=== PATIENT | female | born 1980 | race Caucasian/White ===

== ENCOUNTER 2022-04-25 10:18 | Observation (INO) ==
[2022-04-25] MEDS ORDERED: Ondansetron 4 MG/2 ML VIAL IVP ONE (10:56)
[2022-04-25] MEDS ORDERED: 0.9 % Sodium Chloride 1,000 ML IVC ONE (10:56)
[2022-04-25] MEDS ORDERED: Iopamidol - 370 500 ML MLS IVP ONE (10:57)
[2022-04-25 11:41] LABS: Hematocrit 32.8 % (35.3-44.9); Hemoglobin 10.3 g/dL (11.5-15.4); Mean Corpuscular HGB Conc 31.4 g/dL (31.6-35.5)
[2022-04-25 11:43] LABS: Immature Platelets 22.5 % (1.1-6.1); Mean Corpuscular Hemoglobin 23.4 pg (28.0-33.3); Mean Corpuscular Volume 74.5 fL (83.0-100.0); Red Cell Distribution Width 18.1 % (11.5-14.5); White Blood Count 6.7 K/mcL (4.3-11.1)
[2022-04-25 12:03] LABS: Bacteria,Urine Few per hpf (None-Few); Bilirubin,Urine Moderate (Negative); Blood,Urine Moderate (Negative); Clarity,Urine Clear (Clear); Color,Urine Dark-Yellow (Yellow); Glucose,Urine (UA) Normal (Normal); Ketones,Urine Negative (Negative); Leukocyte Esterase,Urine Moderate (Negative); Nitrite,Urine Positive (Negative); Protein,Urine Trace mg/dL (Neg-Trace); Specific Gravity,Urine 1.022 (1.010-1.025); Squamous Epithelial Cell,Urine Few per hpf (None-Few); Urobilinogen,Urine Normal (Normal); WBC,Urine 15-30 per hpf (0-3)
[2022-04-25 12:12] LABS: Alanine Aminotransferase 1282 Units/L (7-52); Albumin 3.9 g/dL (3.5-5.7); Albumin/Globulin Ratio 1.8 (1.1-2.2); Alkaline Phosphatase 238 Units/L (34-104); Aspartate Amino Transferase 665 Units/L (13-39); BUN/Creatinine Ratio 18 (6-26); Bilirubin,Direct 6.9 mg/dL (0.0-0.2); Bilirubin,Indirect 3.6 mg/dL (0.0-1.0); Bilirubin,Total 10.5 mg/dL (0.3-1.0); Blood Urea Nitrogen 11 mg/dL (6-20); Calcium 8.4 mg/dL (8.6-10.3); Carbon Dioxide 31 mEq/L (23-29); Chloride 98 mEq/L (98-107); Globulin 2.2 g/dL (2.4-3.5); Glucose 130 mg/dL (70-105); Lipase 18 Units/L (11-82); Osmolality,Calculated 279 (280-300); Potassium 3.2 mEq/L (3.5-5.1); Sodium 134 mEq/L (136-145); Total Protein 6.1 g/dL (6.4-8.9)
[2022-04-25 12:33] LABS: Platelet Count 58 K/mcL (140-400)
[2022-04-25 12:42] LABS: Anisocytosis 1+ (Not Present); Hypochromasia Present (Not Present); Lymphocytes # 5.5 K/mcL (0.6-4.6); Microcytosis Present (Not Present); Monocytes # 0.1 K/mcL (0.0-1.3); Neutrophils # 1.1 K/mcL (1.6-8.9); Platelet Estimate Decreased (Normal)
[2022-04-25 12:43] LABS: Large Platelets Present (Not Present); Reactive Lymphocytes Present (Not Present)
[2022-04-25] MEDS ORDERED: cefTRIAXone 1,000 MG in 0.9 % Sodium Chloride Mini Bag 100 ML IVPB ONE (13:03)
[2022-04-25] MEDS ORDERED: Potassium Chloride Elixir 20 MEQ/15 ML UDC PO ONE (15:19)
[2022-04-25 15:43] LABS: INR 1.3; Prothrombin Time 14.5 Seconds (9.4-12.1)
[2022-04-25] MEDS ORDERED: Naloxone 0.4 MG/ML INJ IVP PRN (16:10)
[2022-04-25] MEDS ORDERED: Ondansetron 4 MG/2 ML VIAL IVP PRN (16:10)
[2022-04-25 16:13] LABS: Acetaminophen < 10 mcg/mL (10-20); Ethanol < 10 mg/dL (Less than 10)
[2022-04-25] MEDS ORDERED: 0.9 % Sodium Chloride 1,000 ML IVC SCH (17:45)
[2022-04-25 19:48] LABS: Adenovirus Not Detected (Not Detect); Bordetella Pertussis Not Detected (Not Detect); Chlamydophila pneumoniae Not Detected (Not Detect); Coronavirus 229E Not Detected (Not Detect); Coronavirus HKU1 Not Detected (Not Detect); Coronavirus NL63 Not Detected (Not Detect); Coronavirus OC43 Not Detected (Not Detect); Human Metapneumovirus Not Detected (Not Detect); Human Rhinovirus/Enterovirus Not Detected (Not Detect); Influenza A Subtype 2009 H1 Not Detected (Not Detect); Influenza B Not Detected (Not Detect); Mycoplasma pneumoniae Not Detected (Not Detect); Parainfluenza Virus 1 Not Detected (Not Detect); Parainfluenza Virus 2 Not Detected (Not Detect); Parainfluenza Virus 3 Not Detected (Not Detect); Parainfluenza Virus 4 Not Detected (Not Detect); Respiratory Syncytial Virus Not Detected (Not Detect); SARS-CoV-2 Not Detected (Not Detect)
[2022-04-25 19:52] LABS: Chol/HDL Ratio 23.8 (0-4.9); Phosphorous 2.3 mg/dL (2.7-4.5)
[2022-04-25 20:40] LABS: HIV-1&2 Antibody & p24 Ag Nonreactive (Nonreactive)
[2022-04-25 22:48] LABS: Hepatitis B Surface Antigen Nonreactive (Nonreactive)
[2022-04-25 23:17] LABS: Hepatitis B Core IgM Nonreactive (Nonreactive)
[2022-04-25 23:18] LABS: Hepatitis A Antibody IgM Nonreactive (Nonreactive)
[2022-04-25 23:39] LABS: % Iron Saturation 6 % (15-50); Ferritin 60 ng/mL (10-120); Iron 23 mcg/dL (50-170); Transferrin 296 mg/dL (203-362)
[2022-04-26] MEDS: cefTRIAXone 1,000 MG in Water for inj. (sterile) 10 ML IVP SCH (08:45)
[2022-04-26 08:48] LABS: Hepatitis C Virus Antibody Reactive (Nonreactive)
[2022-04-26 10:33] LABS: Immature Granulocytes % 0.4 % (0-4); Red Cell Distribution Width 18.4 % (11.5-14.5); Segmented Neutrophils % 30.7 %
[2022-04-26 10:34] LABS: Basophils % 0.4 %; Eosinophils # 0.1 K/mcL (0.0-0.6); Eosinophils % 2.6 %; Hematocrit 27.6 % (35.3-44.9); Hemoglobin 8.5 g/dL (11.5-15.4); Immature Platelets 16.6 % (1.1-6.1); Lymphocytes # 3.1 K/mcL (0.6-4.6); Lymphocytes % 60.6 %; Mean Corpuscular HGB Conc 30.8 g/dL (31.6-35.5); Mean Corpuscular Hemoglobin 23.5 pg (28.0-33.3); Mean Corpuscular Volume 76.2 fL (83.0-100.0); Monocytes # 0.3 K/mcL (0.0-1.3); Monocytes % 5.3 %; Neutrophils # 1.6 K/mcL (1.6-8.9); Red Blood Count 3.62 M/mcL (3.82-4.97); White Blood Count 5.1 K/mcL (4.3-11.1)
[2022-04-26 10:36] LABS: Platelet Count 66 K/mcL (140-400)
[2022-04-26 10:40] LABS: INR 1.1; Prothrombin Time 12.5 Seconds (9.4-12.1)
[2022-04-26 10:43] LABS: Activated Partial Thrombo Time 22.1 Seconds (26.0-36.0)
[2022-04-26 11:24] LABS: Alanine Aminotransferase 703 Units/L (7-52); Albumin 3.3 g/dL (3.5-5.7); Albumin/Globulin Ratio 1.7 (1.1-2.2); Alkaline Phosphatase 196 Units/L (34-104); Aspartate Amino Transferase 191 Units/L (13-39); BUN/Creatinine Ratio 15 (6-26); Bilirubin,Indirect 2.5 mg/dL (0.0-1.0); Bilirubin,Total 7.5 mg/dL (0.3-1.0); Blood Urea Nitrogen 8 mg/dL (6-20); Calcium 7.9 mg/dL (8.6-10.3); Carbon Dioxide 25 mEq/L (23-29); Chloride 108 mEq/L (98-107); Glucose 106 mg/dL (70-105); Osmolality,Calculated 285 (280-300); Sodium 138 mEq/L (136-145); Total Protein 5.3 g/dL (6.4-8.9)
[2022-04-26 12:10] LABS: Lactate Dehydrogenase 179 Units/L (140-271)
[2022-04-27 03:18] LABS: Basophils % 0.2 %; Eosinophils # 0.2 K/mcL (0.0-0.6); Eosinophils % 3.3 %; Hematocrit 27.8 % (35.3-44.9); Hemoglobin 8.4 g/dL (11.5-15.4); Immature Granulocytes % 0.7 % (0-4); Immature Platelets 19.3 % (1.1-6.1); Lymphocytes # 3.2 K/mcL (0.6-4.6); Lymphocytes % 55.4 %; Mean Corpuscular HGB Conc 30.2 g/dL (31.6-35.5); Monocytes # 0.3 K/mcL (0.0-1.3); Monocytes % 5.9 %; Red Blood Count 3.66 M/mcL (3.82-4.97); Red Cell Distribution Width 18.6 % (11.5-14.5); Segmented Neutrophils % 34.5 %; White Blood Count 5.8 K/mcL (4.3-11.1)
[2022-04-27 03:22] LABS: Platelet Count 77 K/mcL (140-400)
[2022-04-27 03:51] LABS: Alanine Aminotransferase 564 Units/L (7-52); Albumin 3.3 g/dL (3.5-5.7); Albumin/Globulin Ratio 1.4 (1.1-2.2); Alkaline Phosphatase 204 Units/L (34-104); Aspartate Amino Transferase 102 Units/L (13-39); BUN/Creatinine Ratio 12 (6-26); Bilirubin,Direct 3.4 mg/dL (0.0-0.2); Bilirubin,Indirect 2.1 mg/dL (0.0-1.0); Bilirubin,Total 5.5 mg/dL (0.3-1.0); Blood Urea Nitrogen 7 mg/dL (6-20); Calcium 8.5 mg/dL (8.6-10.3); Carbon Dioxide 25 mEq/L (23-29); Chloride 106 mEq/L (98-107); Globulin 2.4 g/dL (2.4-3.5); Glucose 118 mg/dL (70-105); Osmolality,Calculated 287 (280-300); Potassium 3.6 mEq/L (3.5-5.1); Sodium 139 mEq/L (136-145); Total Protein 5.7 g/dL (6.4-8.9)
[2022-04-27 10:43] VITALS: BP 106/62; PULSE 66; TEMP 98.1; O2SAT 99
[2022-04-27] MEDS: cefTRIAXone 1,000 MG in Water for inj. (sterile) 10 ML IVP SCH (10:56)
[2022-04-28 11:38] LABS: EBV Ab(Viral Capsid Ag)VCA-IGG 84.9 U/mL (0.0-21.9); EBV Ab(Viral Capsid Ag)VCA-IgM 89.1 U/mL (0.0-43.9)
[2022-04-29 11:29] LABS: HCV Quant Interpretation DETECTED (Not Detected); HCV Quant Log 3.21 log IU/mL
== END 2022-04-27 11:21 | disposition home or self-care (01) ==
LOC: 3ANU 10:18 → EMEROOARM 10:18 → SUATTDRO 16:38 → 3ANU 17:25
PROVIDERS: ADMIT Internal Medicine; ATTEND Internal Medicine